=== PATIENT | female | born 1950 | race Caucasian/White ===

== ENCOUNTER 2022-10-09 08:25 | Observation (INO) ==
--- NOTE | 2022-09-18 16:12 | PAT Medication Instructions ---
Medication Instructions Date of Service September 18, 2022 Home Medications acetaminophen 500 mg capsule 500 - 1,000 mg PO UD PRN anastrozole 1 mg tablet 1 mg PO QAM carvedilol 3.125 mg tablet (Coreg) 3.125 mg PO BID celecoxib 100 mg capsule (Celebrex) 100 mg PO QAM hydrochlorothiazide 12.5 mg capsule 12.5 mg PO QAM leflunomide 10 mg tablet 10 mg PO Q2D loratadine 10 mg tablet 10 mg PO UD PRN losartan 50 mg tablet 50 mg PO QAM pantoprazole 40 mg tablet,delayed release (Protonix) 40 mg PO QAM ASK your surgeon for instructions celecoxib 100 mg capsule (Celebrex) 100 mg PO QAM ASK your prescriber and surgeon anastrozole 1 mg tablet 1 mg PO QAM leflunomide 10 mg tablet 10 mg PO Q2D DO NOT take the morning of surgery hydrochlorothiazide 12.5 mg capsule 12.5 mg PO QAM loratadine 10 mg tablet 10 mg PO UD PRN losartan 50 mg tablet 50 mg PO QAM Take morning of surgery With a small sip of water, OTHERWISE NOTHING TO EAT OR DRINK AFTER MIDNIGHT: acetaminophen 500 mg capsule 500 - 1,000 mg PO UD PRN(if needed) carvedilol 3.125 mg tablet (Coreg) 3.125 mg PO BID pantoprazole 40 mg tablet,delayed release (Protonix) 40 mg PO QAM Take evening before surgery acetaminophen 500 mg capsule 500 - 1,000 mg PO UD PRN(if needed) carvedilol 3.125 mg tablet (Coreg) 3.125 mg PO BID Other Notes If you have any questions please call us at [phone] or [phone] or [phone] or [phone]
--- NOTE | 2022-09-26 14:35 | Anesthesiology Consultation ---
Date of Service September 26, 2022 Assessment & Plan (1) Encounter for pre-operative examination: Chart Review Chart Review: Pending: Refer to Additional Notes / Consult section (pending most recent cardio note, ECHO and stress test if available ) and Patient seen in Pre Admission Testing -Awaiting most recent cardio note (seen in 2022), most recent ECHO (07/2022 per PCP records)/stress test (follows with [facility] (Dr. Caldwell/[place]) Left UE restriction -Due to BMI and comorbidities- patient is NOT a Same Day Joint candidate Per PAT appt on 09/26/22, patient denies any recent travel or large group a ctivities. Pt is NOT vaccinated for Covid. Will leave to surgeon's discretion if preop Covid testing needed. Educated on importance of using Covid precautions one week prior to surgery Pt last seen by PCP 09/13/22= seen for preop clearance. History of TAVON per PCP records. Patient cleared for surgery. Echocardiogram done 07/11/2022it was normal. Preoperative labs and EKG will be reviewed by the anesthesiologist, if any abnormal EKG, the patient needs to be cleared by travel registered nurse icu before the surgery. History Surgery Operation Date: 10/09/22 07:30 Proposed Procedures p Left Total Knee Arthroplasty - Justin Urrutia MD Height/Weight Height: 5 ft 6 in Weight: 137.6 kg Allergies Allergy/AdvReac Type Severity Reaction Status Date / Time gabapentin Allergy Unknown HIVES Verified 09/15/22 14:16 oxytetracycline Allergy Unknown HIVES AND Verified 09/15/22 14:38 CHILLS TO TERRAMYCIN CAPSULES A CHILD sulfamethoxazole Allergy Unknown FLUSHED Verified 09/15/22 14:16 [From Bactrim] ALL OVER FACE AND NECK trimethoprim [From Bactrim] Allergy Unknown FLUSHED Verified 09/15/22 14:16 ALL OVER FACE AND NECK Medications Home Medications Medication Instructions Recorded Confirmed Last Taken acetaminophen 500 mg capsule 500 - 1,000 mg PO UD PRN Pain 09/15/22 09/15/22 Unknown anastrozole 1 mg tablet 1 mg PO QAM 09/15/22 09/15/22 Unknown carvedilol 3.125 mg tablet (Coreg) 3.125 mg PO BID 09/15/22 09/15/22 Unknown celecoxib 100 mg capsule (Celebrex) 100 mg PO QAM 09/15/22 09/15/22 Unknown hydrochlorothiazide 12.5 mg capsule 12.5 mg PO QAM 09/15/22 09/15/22 Unknown leflunomide 10 mg tablet 10 mg PO Q2D 09/15/22 09/15/22 Unknown loratadine 10 mg tablet 10 mg PO UD PRN ALLERGIES 09/15/22 09/15/22 Unknown losartan 50 mg tablet 50 mg PO QAM 09/15/22 09/15/22 Unknown pantoprazole 40 mg tablet,delayed 40 mg PO QAM 09/15/22 09/15/22 Unknown release (Protonix) Past Medical History Medical History (Updated 09/27/22 @ 11:25 by Kimberly Damon PA-C) Acid reflux Well controlled and stable Chronic rhinitis Dilated cardiomyopathy Double vision S/P SINCE MICROVASCULAR DECOMPRESSION SURGERY (PERMANENT) Edema LEFT CALF/COMPRESSION STOCKING CONTROLS DISCOMFORT Family history of reaction to anesthesia MULTIPLE FAMILY MEMBERS - N/V History of basal cell cancer OF FACE 1989 History of left breast cancer DX 2019 - TUMOR REMOVED, RADIATION AND CURRENT CHEMO PILL HTN (hypertension) Nausea and vomiting after administration of anesthetic agent HX SEVERE ON OCC Non-rheumatic aortic sclerosis NON REHUMATIC AORTIC VALVE INSUFFICIENCY TAVON (obstructive sleep apnea) Per PCP records- pt denied snoring and/or apnea Polymyositis Stable Trigeminal neuralgia of left side of face Controlled - follows with neuro PRN Urinary incontinence Venous insufficiency BILAT/LEFT LEG IS WORSE Exercise / Class Metabolic Activity III < 4 Walking/Shop/Light housework (one flight of stairs - no chest pain, mild SOB ) Past Family History Family History Grandfather Family history of diabetes mellitus Father Pre-diabetes Sister Polyp of esophagus Past Surgical History Surgical History History of breast surgery TUMOR REMOVED AND LYMPH NODES History of colonoscopy History of endometrial ablation History of foot surgery LEFT History of neck surgery TUMOR REMOVED/BENIGN History of surgery REPAIR BROKEN BLOOD VESSELS INSIDE AND OUT OF CORNERS OF MOUTH History of surgery FOR TRIGEMINAL NEURALGIA X2 DECOMPRESSION X1 RHIZOMY History of total right knee replacement Past Anesthesia History No Hx of Anesthesia Complications (with exception to PONV) and No Family Hx of Anesthesia Complications (with exception to PONV ) History of PONV History of PONV and Hx of Motion Sickness Social History Smoking Status: Never smoker Do You Dip or Chew Tobacco: No Hx Alcohol Use: No Hx Substance Use: No substance use type: does not use Review of Systems Cellulitis- to left lower leg- followed with PCP- on Cephalexin- improved/resolved Patient denies chest pain, shortness of breath at rest, cough, wheezing, palpitations. No hx of seizures, stroke, [place], apnea/snoring. No hx of blood clots or blood transfusions Physical Exam Vital Signs VITALS BP 144/81 P 86 TEMP 98.2 SP02 99% RESP 16 Constitutional no acute distress ENMT Mouth: no TMJ clicking Thyromental Distance: > or= 3.5 Finger Breadths (3.5) Mallampati Class: III Crowns to side teeth Neck + limited neck extension Respiratory normal respiratory effort; no respiratory distress Auscultation: lungs clear to auscultation bilaterally; no wheezes Cardiovascular Rate/Rhythm: regular rate and regular rhythm Heart Sounds: no murmur Vessels: no carotid bruit Musculoskeletal Spine: + pain with cervical ROM Extremities: extremities normal to inspection Psychiatric Orientation: alert Lab Results Anesthesia Preop Results Results Anesthesia Widget: WBC 6.42 K/ul (4.8-10.8) 09/26/22 Hgb 12.4 g/dl (12.0-16.0) 09/26/22 Hct 37.7 % (37.0-47.0) 09/26/22 Plt 249 K/uL (130-400) 09/26/22 Na 140 mmol/L (136-145) 09/26/22 K 4.3 mmol/L (3.5-5.1) 09/26/22 Cl 105 mmol/L (98-107) 09/26/22 CO2 31 mmol/L (21-32) 09/26/22 BUN 14 mg/dl (6-23) 09/26/22 Creat 0.76 mg/dl (0.6-1.2) 09/26/22 Glucose Level 101 mg/dl (70-99(Fasting)) H 09/26/22 PT 11.3 Seconds (9.0-12.0) 09/26/22 PTT 29.6 Seconds (21.0-31.0) 09/26/22 INR 1.0 (0.9-1.1) 09/26/22 HA1c 5.8 % (4.5-5.6) H 09/26/22 Blood Type A Positive 09/26/22 Antibody Screen NEGATIVE 09/26/22 Testing Electrocardiogram Date: 09/26/22 Findings: + NSR @ (82bpm ) Left anterior fascicular block Chest X-Ray Date: 09/26/22 Findings: + NAD and + cardiomegaly (moderate ) COVID-19 Risk Screen Screening Information COVID-19 Screen Date: 09/26/22 Exposure 21 Days Family/Household +COVID Last 21 Days: No Exposure 10 Days Any COVID Exposure Last 10 Days: No Symptoms Last 10 Days Experienced COVID Sx Last 10 Days: No + COVID 0-90 Days COVID + in Last 0-90 Days: No Risk Plan COVID Risk Plan: No Risk Identified Patient Education COVID Preop Screening Education Complete: Yes
--- NOTE | 2022-09-29 12:05 | Communication Note ---
Pt called into [facility] on 09/29/22, she states she received a phone call yesterday afternoon from a "pharmacy." She did not get the name of the pharmacy (she said she could not understand the person on the other line)- information receptionist was bad and the calls kept dropping. She stated that she was told "her meds would be $8-10 per day while in the hospital but three medications were not covered so she as referred to this outside pharmacy for medication coverage." Patient assumed it had to do with her upcoming surgery. She did state that the caller new all three of her insurance providers. She had to verify her name, address and credit card information. Pt states she tried to ask more questions but the call dropped and she never got a call back. Pt called into [facility] questioning this. I explained I had never heard of this but did call my print line supervisor, Cici Emery, who referred me to Eder Mcelroy ([employer]). Per Eder, this is a scam that has happened in the past with patients. It has been researched and looked into and no apparent breaches to [facility] seem to be involved. Pt was called back and instructed to cancel her credit card and to reach out to family to discuss if she would like to report the caller to authorities. Patient voiced understanding. Encouraged to call back with any other questions.
[~2022-10-09 08:25] MED LIST: ACETAMINOPHEN 500 MG TAB PO SCH; BUPIVACAINE 0.5 % 5 MG/1 ML PF 10ML VIAL ONE; CeleBREX 200 MG CAP PO SCH; FAMOTIDINE 20 MG TAB PO SCH; LR 500ML BOLUS, THEN 15ML/HR IV SCH; ROPIVACAINE 0.5% 5 MG/ML 30 ML VIAL ONE; ROPIVACAINE 0.5% HCL/PF 150 MG, BUPIVACAINE 0.75% MPF 20 ML, EPINEPHrine 30MG/30ML (OR ... INSTIL SCH; TRANEXAMIC ACID 1,000 MG **IV Intra-op IV SCH; TRANEXAMIC ACID 1,000 MG **IV Pre-op IV SCH; oxyCODONE HCL 10 MG TABCR (OxyCONTIN) PO SCH
--- NOTE | 2022-10-09 10:09 | History & Physical Report ---
Date of Service October 09, 2022 Assessment & Plan (1) Osteoarthritis of left knee: Plan: Left total knee replacement. 23-hour observation. I have explained the risk benefits and alternatives to the patient and she has consented to proceed. History of Present Illness Chief Complaint: Left knee pain Primary Care Provider: Beba Chen is a 72-year-old woman with left knee osteoarthritis. After the failure of conservative treatment I recommended a total knee replacement. Allergies Allergy/AdvReac Type Severity Reaction Status Date / Time gabapentin Allergy Unknown HIVES Verified 10/09/22 08:58 oxytetracycline Allergy Unknown HIVES AND Verified 10/09/22 08:58 CHILLS TO TERRAMYCIN CAPSULES A CHILD sulfamethoxazole Allergy Unknown FLUSHED Verified 10/09/22 08:58 [From Bactrim] ALL OVER FACE AND NECK trimethoprim [From Bactrim] Allergy Unknown FLUSHED Verified 10/09/22 08:58 ALL OVER FACE AND NECK Home Medications Medication Instructions Recorded Confirmed Type acetaminophen 500 mg capsule 500 - 1,000 mg PO UD PRN Pain 09/15/22 10/09/22 History anastrozole 1 mg tablet 1 mg PO QAM 09/15/22 10/09/22 History carvedilol 3.125 mg tablet (Coreg) 3.125 mg PO BID 09/15/22 10/09/22 History celecoxib 100 mg capsule (Celebrex) 100 mg PO QAM 09/15/22 10/09/22 History hydrochlorothiazide 12.5 mg capsule 12.5 mg PO QAM 09/15/22 10/09/22 History leflunomide 10 mg tablet (Arava) 10 mg PO Q2D 09/15/22 10/09/22 History loratadine 10 mg tablet (Claritin) 10 mg PO UD PRN ALLERGIES 09/15/22 10/09/22 History losartan 50 mg tablet 50 mg PO QAM 09/15/22 10/09/22 History pantoprazole 40 mg tablet,delayed 40 mg PO QAM 09/15/22 10/09/22 History release (Protonix) Past Med/Surg History Medical History Acid reflux Well controlled and stable Chronic rhinitis Dilated cardiomyopathy Double vision S/P SINCE MICROVASCULAR DECOMPRESSION SURGERY (PERMANENT) Edema LEFT CALF/COMPRESSION STOCKING CONTROLS DISCOMFORT Family history of reaction to anesthesia MULTIPLE FAMILY MEMBERS - N/V History of basal cell cancer OF FACE 1989 History of left breast cancer DX 2019 - TUMOR REMOVED, RADIATION AND CURRENT CHEMO PILL HTN (hypertension) Nausea and vomiting after administration of anesthetic agent HX SEVERE ON OCC Non-rheumatic aortic sclerosis NON REHUMATIC AORTIC VALVE INSUFFICIENCY TAVON (obstructive sleep apnea) Per PCP records- pt denied snoring and/or apnea Polymyositis Stable Trigeminal neuralgia of left side of face Controlled - follows with neuro PRN Urinary incontinence Venous insufficiency BILAT/LEFT LEG IS WORSE Surgical History History of breast surgery TUMOR REMOVED AND LYMPH NODES History of colonoscopy History of endometrial ablation History of foot surgery LEFT History of neck surgery TUMOR REMOVED/BENIGN History of surgery REPAIR BROKEN BLOOD VESSELS INSIDE AND OUT OF CORNERS OF MOUTH History of surgery FOR TRIGEMINAL NEURALGIA X2 DECOMPRESSION X1 RHIZOMY History of total right knee replacement Family History Grandfather Family history of diabetes mellitus Father Pre-diabetes Sister Polyp of esophagus Social History Smoking Status: Never smoker Do You Dip or Chew Tobacco: No; Hx Alcohol Use: No Hx Substance Use: No Preferred Language: Romansh Communication Ability: Effective Orchestra Leader Required: No Beliefs That Will Affect Care: None Current Living Situation: Spouse Other Information That Helps Us Care for You: No Feels Safe at Home: Yes Assistive Devices: Cane and Other Assistive Devices Comment: READING GLASSES Physical Exam Constitutional: Well-developed, well-nourished, no acute distress Eyes: PERRL, conjunctivae normal, anicteric sclerae Neck: trachea midline, no thyromegaly Respiratory: Clear to auscultation Cardiovascular: Regular rate and rhythm Musculoskeletal: Left knee 0 to 90 degrees medial greater than lateral joint line tenderness. Crepitus with range of motion. Skin: Mild erythema bilateral ankles. No drainage. 2+ peripheral edema Results & Data Results & Data Vital Signs (Past 12 Hours) Vital Signs Temp Pulse Resp BP Pulse Ox O2 Del Method 10/09/22 09:01 36.7 C 78 18 139/74 96 Room Air
[2022-10-09] MEDS ORDERED: LIDOCAINE 2% 2 ML VIAL/AMP(20MG/ML) INFIL ONE (10:47)
[2022-10-09] MEDS ORDERED: PROPOFOL IV EMULSION 10 MG/ML 20 ML VIAL IV ONE (10:47)
[2022-10-09] MEDS ORDERED: MIDAZOLAM HCL 1 MG/ML 2ML VIAL ONE ×2 (10:47)
[2022-10-09] MEDS ORDERED: ONDANSETRON INJ 2 MG/ML 2 ML VIAL ONE (10:47)
[2022-10-09] MEDS ORDERED: HYDROmorphone INJ 2 MG/ML SYR/VIAL IV PRN (11:24)
[2022-10-09] MEDS ORDERED: ePHEDrine sulfate 50 MG/ML AMP IV PRN (11:24)
[2022-10-09] MEDS ORDERED: fentaNYL citrate PF 100 MCG/2 ML VIAL IV PRN (11:24)
[2022-10-09] MEDS ORDERED: ONDANSETRON INJ 2 MG/ML 2 ML VIAL IV PRN ×2 (11:24→13:43)
[2022-10-09] MEDS ORDERED: ATROPINE SULFATE 0.1 MG/ML 10ML SYR IV PRN (11:24)
[2022-10-09] MEDS ORDERED: ORTHO JOINT ANESTHETIC ONE (11:40)
[2022-10-09] MEDS ORDERED: fentaNYL citrate PF 100 MCG/2 ML VIAL ONE ×2 (12:00→13:00)
[2022-10-09] MEDS ORDERED: KETAMINE 50 MG/5 ML SYRINGE ONE (12:32)
--- NOTE | 2022-10-09 13:39 | Post Operative Brief Note ---
Immediate Post Op Note v1 Date of Surgery October 09, 2022 Pre & Post Diagnosis Operation Date: 10/09/22 10:25 Pre-Op Diagnosis: Osteoarthritis Knee Left Post-Op Diagnosis: Osteoarthritis Knee Left I identified the patient and participated in the time-out.: Yes Procedure Operation Date: 10/09/22 10:25 Actual Procedures p Left Total Knee Arthroplasty(Left) - Justin Urrutia MD Surgeon Justin Urrutia MD Documentation Supervisor Dori Shine PA-C Estimated Blood Loss 5 Findings Consistent with Post-Op Diagnosis Osteoarthritis left knee Anesthesia Type General Regional Complications No complications
[2022-10-09] MEDS ORDERED: LORATADINE 10 MG TAB PO PRN (13:42)
--- NOTE | 2022-10-09 13:42 | Operative Report ---
Post Operative Report Pre & Post Diagnosis Operation Date: 10/09/22 10:25 Pre-Op Diagnosis: Osteoarthritis Knee Left Post-Op Diagnosis: Osteoarthritis Knee Left I identified the patient and participated in the time-out.: Yes Procedure Operation Date: 10/09/22 10:25 Actual Procedures p Left Total Knee Arthroplasty(Left) - Justin Urrutia MD Surgeon Justin Urrutia MD Patient Registration Manager Dori Shine PA-C Estimated Blood Loss 5 Findings Consistent with Post-Op Diagnosis Osteoarthritis left knee Specimens Bone and cartilage left knee Drains Herbie dressing drain Anesthesia Type General Regional Complications No complications Indications April is a 72-year-old woman with left knee osteoarthritis. After the failure of conservative treatment I recommended a total knee replacement. I explained the risk benefits and alternatives to her and she consented to proceed. Description of Procedure Implants: Margarita triathlon posterior stabilized knee femur size 5. Tibia size 4 primary baseplate. Polyethylene size 4 x 9 mm posterior stabilized. Patella size 36 mm symmetrical. Procedure: The patient was taken to the operating room and after verifying their identity and confirming the operative side spinal anesthesia and a regional block was administered. A nonsterile tourniquet was placed on the operative leg and the operative leg was sterilely prepped and draped in usual fashion. After exsanguinating the leg and inflating the tourniquet a 6 inch incision was made over the patella and carried sharply through subcutaneous tissue. A medial parapatellar arthrotomy was performed, the patella was everted, and planed to a thickness of 14 mm. The appropriate size patella was trialed and the drill holes were completed. The knee was flexed and the femur cleaned of soft tissue. The femoral intramedullary guide was utilized to take a 5 valgus cut 10 mm total resection. The distal femur cut was completed. The cutting guide was removed. The AP sizing guide was placed in the correct size determined. The appropriately sized sized 4 in 1 cutting guide was placed and its position confirmed with the epicondyle axis and anterior cortex. The cuts were completed. The notch cut was completed. The tibia was subluxed forward and the extra medullary tibial guide was placed and pinned in place. A 2 mm resection was measured on the medial tibial plateau perpendicular to the long axis of the tibia. The proximal tibia was cut. The guide was removed. A lamina remediation project engineer was placed with the knee in 90 of flexion in the remaining meniscus and posterior soft tissue were removed. 20 cc of local injection was utilized in the posterior capsule and soft tissues. The knee was balanced in flexion and extension utilizing the gap carpenter labor supervisor. The tibia was subluxed forward and the appropriately sized trial was placed and pinned in place. The femoral trial was placed and the appropriate size poly- was utilized to achieve full extension, full flexion and good stability to varus and valgus stress. Trial components were all removed. The knee was thoroughly irrigated with pulse lavage, bacteriocidal wash, and a repeat pulse lavage. 20 cc of local injection was utilized in the medial tissues and 20 cc in the lateral tissues. Antibiotic cement was mixed using vacuum technique in the tibial and femoral components were cemented in place. The poly-was inserted and the knee held in full extension while the cement hardened. The patella was cemented and clamped. Excess cement was carefully removed. After the cement hardened range of motion was once again assessed and noted to be full including full extension and good stability to varus and valgus stress with central patellar tracking. The knee was irrigated with pulse lavage, a bacteriocidal wash, and a repeat pulse lavage. 20 cc of local was used in the anterior subcutaneous tissues. The arthrotomy was closed with #1 Ethibond, the remaining incision with 2-0 Vicryl and denia. A silver dressing was applied and a compression wrap. The patient tolerated the procedure well and there were no intraoperative complications. Dori Shine PA-C assisted in all aspects of the procedure including patient positioning, prepping and draping, manipulation of surgical instruments and retractors, wound closure, dressing placement, and compression wrap placement. I attest to the content of the Intraoperative Record and any orders documented therein. Any exceptions are noted below.
[2022-10-09] MEDS ORDERED: oxyCODONE HCL IR 5 MG TAB (IMMEDIATE RELEASE) PO PRN (13:43)
[2022-10-09] MEDS ORDERED: bisacodyL 10 MG SUPP PR PRN (13:43)
[2022-10-09] MEDS ORDERED: NALOXONE HCL 0.4 MG/1 ML VIAL/CARP IV PRN (13:43)
[2022-10-09] MEDS ORDERED: MAGNESIUM HYDROXIDE SUSP 30 ML UDC PO PRN (13:43)
--- NOTE | 2022-10-09 14:51 | Anesthesiology Progress Note ---
Date of Service October 09, 2022 Anesthesia Post Procedure Vital Signs Vital Signs: Temp Pulse Pulse Resp BP Pulse Ox O2 Del Method 10/09/22 14:35 78 14 153/82 H 96 Oxymask 10/09/22 14:45 77 12 139/86 94 Oxymask 10/09/22 14:25 77 11 L 150/82 H 100 Oxymask 10/09/22 14:18 36.4 C L 92 H 13 161/93 H 98 Oxymask 10/09/22 09:01 36.7 C 78 18 139/74 96 Room Air O2 Flow Rate 10/09/22 14:35 2 10/09/22 14:45 2 10/09/22 14:25 5 10/09/22 14:18 5 10/09/22 09:01 Transfer of Care Handoff Completed per policy Notes Mental Status: alert / awake / arousable and participated in evaluation Patient Amnestic to Procedure: Yes Nausea / Vomiting: adequately controlled Pain: adequately controlled Airway Patency, RR, SpO2: stable & adequate BP & HR: stable & adequate Hydration State: stable & adequate Anesthetic Complications: no major complications apparent
[2022-10-09] MEDS: SODIUM CHLORIDE 0.9% 1000ML 1,000 ML IV SCH (16:45)
[2022-10-09] MEDS: ACETAMINOPHEN 500 MG TAB PO SCH ×2 (16:48→22:51)
--- NOTE | 2022-10-09 17:23 | Hospitalist Consultation ---
Date of Consultation October 09, 2022 Assessment & Plan (1) Osteoarthritis of left knee: s/p Left Total Knee Arthroplasty(Left) - Justin Urrutia MD on 11/09. EBL 5cc Pain control/bowel regimen/PT/OT per primary service DVT prophylaxis with eliquis 2.5mg BID ordered by primary service to begin AM 5/9 Pepcid x 1 for reflux/nausea & asked RN to provide zofran IV x 1 -- prior issues w/ nausea w/ anesthesia however she reports this is not as bad as it's been in the past w/ prior surgeries She is hoping for HH tomorrow pending how therapy evaluations go Monitor labs in AM (2) Dilated cardiomyopathy: follows with cardiology [facility] -- had cath, which was negative for obstructive findings but was started on coreg 3.125mg BID and losartan 50mg at that time and has been tolerating well for HF symptoms. She is also on HCTZ 12.5mg daily for HTN reported, BPs stable Will hold HCTZ/losartan in post-op until assess BP/kidney function in AM then can resume but continue coreg 3.125mg BID for now BP stable, no CP/SOB reported (3) HTN (hypertension): continue coreg, holding hctz/losartan as above until eval in AM BP/kidney function BP stable present 136/82 (4) History of left breast cancer: remains on anastrazole, getting routine mammograms, following in [place] heme/onc (5) Acid reflux: continue PPI while inpatient pepcid x 1 for now given steroids w/ surgery/nausea and can monitor response (6) Pre-diabetes: a1c 5.8 on pre-op testing not on meds outpatient ordered BSG AC/HS -- if elevated can add SSI while inpatient otherwise can f/u PCP outpatient Plan Thank you for allowing hospitalist service to participate in the care of Ms Gordon. Will follow along in AM - please call with questions/concerns in meantime Supervising Physician Co-Signing Physician Notes I personally saw and examined the patient. I verified all canseco points and agree with Dori Casper PA-C with the following exceptions and/or additions: 72 year old POD#0 left TKA. EBL 5ml. No acute concerns or questions from patient O/E A&Ox3, HS RRR, systolic murmur LUSB and apex, Chest CTAB, Abdo SNT A/P s/p left TKA - pain/VTE/bowel management per primary orthopedics Agree with chronic medical condition management as above History of Present Illness Reason for Consultation: med management Requesting Physician: Dr Urrutia Attending Physician: Justin Urrutia MD History of Present Illness 72yo female w/ prior RIGHT TKA few years ago by Dr Meadows (had tendon rupture w/ that surgery) presented for L TKA with Dr Urrutia. PMHx significant for cardiomyopathy, aortic valve insufficiency, HTN, GERD, TAVON, polymyositis, L breast ca s/p surgery/radiation. Cardiology report from [facility] noted cardiac cath without evidence for CAD. Mild LV dysfunction and IVCD on EKG and was started on HR regimen with coreg and losartan. Eval in room 306 post-operatively. She notes she has been stable pm her coreg/losartan for her cardiomyopathy. Negative cath in the past at [facility]. She is also on HCTZ for her blood pressure. Discussed holding losartan/HCTZ post op but hopefully able to resume in AM. Prior issues w/ nausea w/ anesthesia and states she is having some at present after trying to eat some but not as bad as in the past. Discussed will ask nursing to provide zofran, will also order dose of pepcid x 1 now. No fevers/chills, chest pain, shortness of breath at present. She is hopeful for home with HH after therapy evals. DVT proph w/ eliquis - she notes she has not had hx DVT/PE in the past, gets routine mammograms for her hx breast ca, remains on anastrazole and follows in [place]. Allergies Allergy/AdvReac Type Severity Reaction Status Date / Time gabapentin Allergy Unknown HIVES Verified 10/09/22 08:58 oxytetracycline Allergy Unknown HIVES AND Verified 10/09/22 08:58 CHILLS TO TERRAMYCIN CAPSULES A CHILD sulfamethoxazole Allergy Unknown FLUSHED Verified 10/09/22 08:58 [From Bactrim] ALL OVER FACE AND NECK trimethoprim [From Bactrim] Allergy Unknown FLUSHED Verified 10/09/22 08:58 ALL OVER FACE AND NECK Home Medications Medication Instructions Recorded Confirmed Type anastrozole 1 mg tablet 1 mg PO QAM 09/15/22 10/09/22 History carvedilol 3.125 mg tablet (Coreg) 3.125 mg PO BID 09/15/22 10/09/22 History hydrochlorothiazide 12.5 mg capsule 12.5 mg PO QAM 09/15/22 10/09/22 History leflunomide 10 mg tablet (Arava) 10 mg PO Q2D 09/15/22 10/09/22 History loratadine 10 mg tablet (Claritin) 10 mg PO UD PRN ALLERGIES 09/15/22 10/09/22 History losartan 50 mg tablet 50 mg PO QAM 09/15/22 10/09/22 History pantoprazole 40 mg tablet,delayed 40 mg PO QAM 09/15/22 10/09/22 History release (Protonix) acetaminophen 500 mg tablet 1,000 mg PO Q8 21 days #126 tabs 10/10/22 Rx (Tylenol Extra Strength) apixaban 2.5 mg tablet (Eliquis) 2.5 mg PO BID 14 days #28 tabs 10/10/22 Rx oxycodone 5 mg tablet 5 - 10 mg PO Q4H PRN pain #30 tabs 10/10/22 Rx Patient History Medical History (Updated 10/09/22 @ 17:46 by Dori Casper PA-C) Acid reflux Well controlled and stable Chronic rhinitis Dilated cardiomyopathy Double vision S/P SINCE MICROVASCULAR DECOMPRESSION SURGERY (PERMANENT) Edema LEFT CALF/COMPRESSION STOCKING CONTROLS DISCOMFORT Family history of reaction to anesthesia MULTIPLE FAMILY MEMBERS - N/V History of basal cell cancer OF FACE 1989 History of left breast cancer DX 2019 - TUMOR REMOVED, RADIATION AND CURRENT CHEMO PILL HTN (hypertension) Nausea and vomiting after administration of anesthetic agent HX SEVERE ON OCC Non-rheumatic aortic sclerosis NON REHUMATIC AORTIC VALVE INSUFFICIENCY TAVON (obstructive sleep apnea) Per PCP records- pt denied snoring and/or apnea Polymyositis Stable Trigeminal neuralgia of left side of face Controlled - follows with neuro PRN Urinary incontinence Venous insufficiency BILAT/LEFT LEG IS WORSE Surgical History (Updated 10/10/22 @ 09:21 by Ayush White PA-C) History of breast surgery TUMOR REMOVED AND LYMPH NODES History of colonoscopy History of endometrial ablation History of foot surgery LEFT History of neck surgery TUMOR REMOVED/BENIGN History of surgery REPAIR BROKEN BLOOD VESSELS INSIDE AND OUT OF CORNERS OF MOUTH History of surgery FOR TRIGEMINAL NEURALGIA X2 DECOMPRESSION X1 RHIZOMY History of total right knee replacement Family History Grandfather Family history of diabetes mellitus Father Pre-diabetes Sister Polyp of esophagus Social History Smoking Status: Never smoker Do You Dip or Chew Tobacco: No; Hx Alcohol Use: No Hx Substance Use: No Preferred Language: Cuban Communication Ability: Effective Automotive Instructor Required: No Beliefs That Will Affect Care: None Current Living Situation: Spouse Other Information That Helps Us Care for You: No Feels Safe at Home: Yes Assistive Devices: Walker Assistive Devices Comment: READING GLASSES Physical Exam Physical Exam: General: WN/WN female sitting up in bed post-op, eating dinner, NAD but mild nausea reported, no vomiting. general pallor noted HEENT: head normocephalic, atraumatic, mmm, trachea midline Resp: CTA, slightly diminished in bases, no w/c, on 2L 100% CV: regular rate (slightly tachy to 90-low 100s at present), +murmur, no pitting edema/calf tenderness, pulses palpable (slightly diminished) GI: +BS, slight distension, NT : no washburn MSK/Neuro: scar to R knee from prior TKA, dressing/marcela wrap to LLE, ice pack present. sensation intact, toes mobile, cap refill wnl Psych: AOx3, pleasant and cooperative Results & Data Results & Data Vital Signs (Past 12 Hours) Vital Signs Temp Pulse Pulse Resp BP Pulse Ox O2 Del Method 10/09/22 16:43 36.3 C L 72 16 136/82 100 Nasal Cannula 10/09/22 16:16 36.3 C L 76 16 147/79 H 93 Room Air 10/09/22 15:39 36.1 C L 73 18 143/84 H 97 Room Air 10/09/22 14:35 78 14 153/82 H 96 Oxymask 10/09/22 15:15 36.2 C L 74 12 139/77 93 Room Air 10/09/22 14:45 77 12 139/86 94 Oxymask 10/09/22 14:25 77 11 L 150/82 H 100 Oxymask 10/09/22 14:18 36.4 C L 92 H 13 161/93 H 98 Oxymask 10/09/22 09:01 36.7 C 78 18 139/74 96 Room Air O2 Flow Rate 10/09/22 16:43 2 10/09/22 16:16 10/09/22 15:39 10/09/22 14:35 2 10/09/22 15:15 10/09/22 14:45 2 10/09/22 14:25 5 10/09/22 14:18 5 10/09/22 09:01 Laboratory Results 10/09/22 Range/Units Unknown SARS-CoV-2, RNA, NAAT NEGATIVE (NEGATIVE) PG Care Time/CCT Total # of Minutes Spent Total Time Spent with Patient: Total time spent is greater than 50% in coordination of care (as documented) at patient's floor/unit and/or counseling patient: Coding Level of Care Code 89346 IN/OBS CONSULT LVL 3,45M Diagnoses Osteoarthritis of left knee M17.12 Dilated cardiomyopathy I42.0 HTN (hypertension) I10 History of left breast cancer Z85.3 Acid reflux K21.9 Pre-diabetes R73.03
[2022-10-09] MEDS ORDERED: FAMOTIDINE 20 MG TAB PO ONE (17:35)
[2022-10-09] MEDS: DOCUSATE SODIUM 100 MG CAP PO SCH (20:42)
[2022-10-09] MEDS: carvediloL 3.125 MG TAB PO SCH (20:42)
[2022-10-09] MEDS: ceFAZolin 2000MG 2,000 MG/15 ML SYR IV SCH (20:43)
[2022-10-09] MEDS ORDERED: SENNA 8.6 MG TAB PO SCH (21:00)
[2022-10-10] MEDS: ceFAZolin 2000MG 2,000 MG/15 ML SYR IV SCH (05:04)
[2022-10-10] MEDS: ACETAMINOPHEN 500 MG TAB PO SCH (05:06)
[2022-10-10] MEDS: SODIUM CHLORIDE 0.9% 1000ML 1,000 ML IV SCH (05:24)
[2022-10-10 06:38] LABS: Hematocrit (blood only) 33.5 % (37.0-47.0); Hemoglobin 10.9 g/dl (12.0-16.0); Mean Corpuscular Hemoglobin 28.9 pg (25.0-34.0); Mean Corpuscular Hgb Conc 32.5 g/dL (32.0-36.0); Mean Corpuscular Volume 88.9 fL (80.0-100.0); Mean Platelet Volume 9.8 fL (9.4-12.4); Platelet Count 208 K/uL (130-400); RDW Coefficient of Variation 13.2 % (11.5-14.5); RDW Standard Deviation 42.7 fL (36.4-46.3); Red Blood Count 3.77 M/uL (4.20-5.40); White Blood Count 9.42 K/ul (4.8-10.8)
[2022-10-10 06:47] LABS: Creatinine Clr Calc Pharmacy 86.3 ml/min; Est GFR (African American) 79.9 ml/min; Est GFR (Non-African American) 68.9 ml/min; Potassium 4.5 mmol/L (3.5-5.1)
[2022-10-10] MEDS: DOCUSATE SODIUM 100 MG CAP PO SCH (07:44)
[2022-10-10] MEDS: carvediloL 3.125 MG TAB PO SCH (07:44)
[2022-10-10] MEDS ORDERED: dexAMETHasone 10 MG in SYRINGE 0 ML IV SCH (08:00)
[2022-10-10] MEDS ORDERED: APIXABAN 2.5 MG TAB PO SCH (09:00)
[2022-10-10] MEDS ORDERED: LOSARTAN POTASSIUM 50 MG TAB PO SCH (09:00)
[2022-10-10] MEDS ORDERED: hydroCHLOROthiazide 25 MG TAB PO SCH (09:00)
[2022-10-10] MEDS ORDERED: ANASTROZOLE 1 MG TAB PO SCH (09:00)
[2022-10-10] MEDS ORDERED: PANTOprazole 40 MG TAB PO SCH (09:00)
--- NOTE | 2022-10-10 09:22 | Orthopedic Progress Note ---
Date of Service October 10, 2022 POD #1 s/p Left Total Knee Arthroplasty Assessment & Plan (1) History of total left knee replacement: Plan: POD #1 s/p Left TKA pt/ot dvt proph with JOSE/SCD/Eliquis x 14 days plan for d/c home with HHPT after PT today Admission and Anticipated Discharge Date Admission Date: October 09, 2022 Subjective POD #1 s/p Left TKA Review of Systems Constitutional: no fever, no chills and no sweats Respiratory: no cough and no dyspnea Cardiovascular: no chest pain and no dyspnea Gastrointestinal: no abdominal pain, no nausea and no vomiting Physical Exam Physical Exam: Vital Signs Temp 36.9 C 10/10/22 06:22 Pulse 79 10/10/22 06:22 Resp 16 10/10/22 06:22 BP 116/75 10/10/22 06:22 Pulse Ox 94 10/10/22 06:22 O2 Del Method Room Air 10/10/22 08:12 O2 Flow Rate 2 10/09/22 17:40 Intake & Output 10/09/22 10/10/22 10/10/22 18:59 06:59 18:59 Intake Total 1672.5 / 2672.5 1000 / 2672.5 Output Total 5 / 305 300 / 305 Balance 1667.5 / 2367.5 700 / 2367.5 Weight 136.106 kg Intake: IV 272.5 / 1272.5 1000 / 1272.5 Lactated Ringe r's 1,000 ml @ 15 0 / 0 mls/hr IV .Q24 H BILLY Rx#: [id number] Sodium Chlorid e 0.9% 1000ML 1, 1000 / 1000 000 ml @ 100 m ls/hr IV .Q10H BILLY Rx#:[id number] Tranexamic Aci d / 0.7% NaCl 1, 200 / 200 000 mg In 100 ml @ 600 mls/hr IV TODAY@0600 BILLY Rx#:[id number] ceFAZolin 3000 MG 72.5 ml @ 130 72.5 / 72.5 mls/hr IV PREO P BILLY Rx#: [id number] IV Perioperative 1400 / 1400 Output: Urine 300 / 300 Estimated Blood Loss 5 / 5 Other: # Unmeasured Voi ds 1 Weight Measureme nt Method Standing Scale Musculoskeletal: Left Leg: NVDI, calf SNT, negative michael sign. DP palpable, able to wiggle toes/ankle movement without difficulty. dressing clean dry and intact. Results & Data Vital Signs (Past 12 Hours) Vital Signs Temp Pulse Resp BP Pulse Ox O2 Del Method 10/10/22 08:12 Room Air 10/10/22 06:22 36.9 C 79 16 116/75 94 Room Air 10/10/22 02:06 36.8 C 85 16 141/81 H 93 Room Air 10/09/22 22:50 37.0 C 77 16 136/83 93 Room Air Laboratory Results Laboratory Results WBC 9.42 K/ul (4.8-10.8) 10/10/22 05:46 RBC 3.77 M/uL (4.20-5.40) L 10/10/22 05:46 Hgb 10.9 g/dl (12.0-16.0) L 10/10/22 05:46 Hct 33.5 % (37.0-47.0) L 10/10/22 05:46 MCV 88.9 fL (80.0-100.0) 10/10/22 05:46 MCH 28.9 pg (25.0-34.0) 10/10/22 05:46 MCHC 32.5 g/dL (32.0-36.0) 10/10/22 05:46 RDW Std Deviation 42.7 fL (36.4-46.3) 10/10/22 05:46 RDW Coeff of Naima 13.2 % (11.5-14.5) 10/10/22 05:46 Plt Count 208 K/uL (130-400) 10/10/22 05:46 MPV 9.8 fL (9.4-12.4) 10/10/22 05:46 Sodium 139 mmol/L (136-145) 10/10/22 05:46 Potassium 4.5 mmol/L (3.5-5.1) 10/10/22 05:46 Chloride 106 mmol/L (98-107) 10/10/22 05:46 Carbon Dioxide 26 mmol/L (21-32) 10/10/22 05:46 Anion Gap 7 (3-11) 10/10/22 05:46 BUN 17 mg/dl (6-23) 10/10/22 05:46 Creatinine 0.85 mg/dl (0.6-1.2) 10/10/22 05:46 Est Cr Clr Drug Dosing 86.3 ml/min 10/10/22 05:46 Est GFR ( Amer) 79.9 ml/min 10/10/22 05:46 Est GFR (Non-Af Amer) 68.9 ml/min 10/10/22 05:46 BUN/Creatinine Ratio 20.0 (10-20) 10/10/22 05:46 Glucose 117 mg/dl (70-99(Fasting)) H 10/10/22 05:46 POC Glucose 121 mg/dl (70-99) H 10/10/22 06:41 Calcium 8.0 mg/dl (8.6-10.3) L 10/10/22 05:46 Magnesium 2.0 mg/dl (1.7-2.4) 10/10/22 05:46 SARS-CoV-2, RNA, NAAT NEGATIVE (NEGATIVE) 10/09/22 Unknown
--- NOTE | 2022-10-16 13:54 | Discharge Summary ---
Date of Service October 16, 2022 Admission HPI Per Admitting Provider April is a 72-year-old woman with left knee osteoarthritis. After the failure of conservative treatment I recommended a total knee replacement. Principal Diagnosis Left Knee DJD Discharge Exam Vital Signs Temp 36.9 C 10/10/22 06:22 Pulse 79 10/10/22 06:22 Resp 16 10/10/22 06:22 BP 116/75 10/10/22 06:22 Pulse Ox 94 10/10/22 06:22 O2 Del Method Room Air 10/10/22 08:12 O2 Flow Rate 2 10/09/22 17:40 Intake & Output 10/09/22 10/10/22 10/10/22 18:59 06:59 18:59 Intake Total 1672.5 / 2672.5 1000 / 2672.5 Output Total 5 / 305 300 / 305 Balance 1667.5 / 2367.5 700 / 2367.5 Weight 136.106 kg Intake: IV 272.5 / 1272.5 1000 / 1272.5 Lactated Ringer's 1,000 ml @ 15 0 / 0 mls/hr IV .Q24H BILLY Rx#: [id number] Sodium Chloride 0.9% 1000ML 1, 1000 / 1000 000 ml @ 100 mls/hr IV .Q10H BILLY Rx#:[id number] Tranexamic Acid / 0.7% NaCl 1, 200 / 200 000 mg In 100 ml @ 600 mls/hr IV TODAY@0600 BILLY Rx#:[id number] ceFAZolin 3000MG 72.5 ml @ 130 72.5 / 72.5 mls/hr IV PREOP BILLY Rx#: [id number] IV Perioperative 1400 / 1400 Output: Urine 300 / 300 Estimated Blood Loss 5 / 5 Other: # Unmeasured Voids 1 Weight Measurement Method Standing Scale Eyes PERRL, conjunctivae normal, anicteric sclerae Neck trachea midline, no thyromegaly Discharge Data Allergies Allergy/AdvReac Type Severity Reaction Status Date / Time gabapentin Allergy Unknown HIVES Verified 10/09/22 08:58 oxytetracycline Allergy Unknown HIVES AND Verified 10/09/22 08:58 CHILLS TO TERRAMYCIN CAPSULES A CHILD sulfamethoxazole Allergy Unknown FLUSHED Verified 10/09/22 08:58 [From Bactrim] ALL OVER FACE AND NECK trimethoprim [From Bactrim] Allergy Unknown FLUSHED Verified 10/09/22 08:58 ALL OVER FACE AND NECK Consultations 10/09/22 13:43 Consult Hospitalist Routine Procedures Performed Operation Date: 10/09/22 10:25 Actual Procedures p Left Total Knee Arthroplasty(Left) - Justin Urrutia MD Ordered Studies 10/09/22 05:00 US - OR guided needle placemen Routine Hospital Course (1) History of total left knee replacement: POD #1 s/p Left TKA pt/ot dvt proph with JOSE/SCD/Eliquis x 14 days plan for d/c home with HHPT after PT today Total Time Total Time Spent Total Time Spent (In Minutes): 30 minutes Discharge Plan Discharge Items Patient Disposition: Home - Home Health Services Reason For Visit: STATUS POST LEFT TOTAL KNEE Discharge Diagnosis: left total knee replacement Activity: Per Instructions section Weightbearing Comment: WBAT with walker Non-emergency contact: Surgeon Call non-emergency contact if: you have any medication questions, your temperature is above 101, your wound has increased redness, your wound has increased drainage and your wound pain has increased Follow-up/Referrals: Justin Urrutia MD [Surgeon] - (14-16 days) Jyoti Erickson D.O. [Outside Practitioners] - Diet: Regular Addtl Attending Provider Instructions: Patient will take Eliquis 2.5mg twice daily x [address] Urrutia will send to patient's pharmacy. Pain medication will be send to pharmacy on file by Dr. Urrutia. VIKI dressing to remain in place until patient is 7 days post-op. Patient can shower 72 hours following surgery. Do not submerge the knee. Weightbearing as tolerated. Discharged home with home nursing and home physical therapy. Pending Studies at Discharge: No Stand-Alone Forms: My [email or web address], Smoking Cessation Medications and DC Order Prescriptions: New Eliquis 2.5 mg Tablet 2.5 mg PO BID 14 Days Qty: 28 0RF acetaminophen [Tylenol Extra Strength] 500 mg Tablet 1,000 mg PO Q8 21 Days Qty: 126 0RF oxycodone 5 mg Tablet 5 - 10 mg PO Q4H PRN (Reason: pain) Qty: 30 0RF Continued losartan 50 mg Tablet 50 mg PO QAM anastrozole 1 mg Tablet 1 mg PO QAM leflunomide [Arava] 10 mg Tablet 10 mg PO Q2D Patient Comments: EVERY OTHER DAY , MORNING carvedilol [Coreg] 3.125 mg Tablet 3.125 mg PO BID Rx Instructions: must administer with a meal/food pantoprazole [Protonix] 40 mg Tablet,Delayed Release (Dr/Ec) 40 mg PO QAM hydrochlorothiazide 12.5 mg Capsule 12.5 mg PO QAM loratadine [Claritin] 10 mg Tablet 10 mg PO UD PRN (Reason: ALLERGIES) Discontinued acetaminophen [Tylenol Extra Strength] 500 mg Capsule 500 - 1,000 mg PO UD PRN (Reason: Pain) celecoxib [Celebrex] 100 mg Capsule 100 mg PO QAM Patient Comments: trying to wean off Krames/Other Patient Handouts: Knee Replace Home Recovery, Knee Replace 1st Month Admission Data Admit Date/Time: 10/09/22 13:43 Attending Provider: Justin Urrutia Admit Provider: Justin Urrutai Primary Care Provider: Beba Baum Other Providers: Raul Ramon ; Daphne Kent ; Ele[facility],Home [facility] Other Interventions: Discharge Summary Assessment (RN) Last Done: 10/10/22 09:40
== END 2022-10-10 12:14 | disposition home health service (06) ==
LOC: ASU 08:25 → 3E 08:25